=== PATIENT | male | born 1980 | race Caucasian/White ===

== ENCOUNTER 2017-09-19 18:16 | Inpatient (IN) | payer OTHER ==
[~2017-09-19] VITALS: Ht 172.7 cm; Wt 85.3 kg
[2017-09-19] MEDS ORDERED: SODIUM CHLORIDE 0.9% 1,000 ML IV ONE (18:41)
[2017-09-19] MEDS ORDERED: NITROGLYCERIN 0.4MG TABLET SL SL PRN (18:45)
[2017-09-19 19:02] LABS: BASOPHILS % 0.6 % (0.0-2.0); HEMATOCRIT. 42.6 % (42.0-52.0); HEMOGLOBIN. 14.8 g/dL (14.0-18.0); LYMPHOCYTES % 37.4 % (20.0-50.0); MEAN CORPUSCULAR HEMOGLOBIN 29.6 pg (28.0-32.0); MEAN CORPUSCULAR VOLUME 85.1 fL (80.0-94.0); MEAN PLATELET VOLUME 7.8 fl (7.4-10.4); MONOCYTES % 8.1 % (2.0-8.0); NEUTROPHILS % 53.9 % (40.0-76.0); PLATELET 177 x1000/uL (130-400); RED CELL DISTRIBUTION WIDTH 14.1 % (11.6-14.6)
[2017-09-19 19:05] LABS: CHLORIDE 99 mEq/L (98-107)
[2017-09-19 19:09] LABS: D-DIMER 0.35 mg/L FEU (<0.50); PARTIAL THROMBOPLASTIN TIME 24.2 sec (23.4-31.0); PROTHROMBIN TIME 10.8 sec (9.4-11.6)
[2017-09-19 19:15] LABS: ETHANOL BLOOD 296 mg/dL
[2017-09-19] MEDS ORDERED: POTASSIUM CHLORIDE 20MEQ TABLET SR PO ONE (22:15)
[2017-09-19] MEDS ORDERED: ASPIRIN 325MG EC TABLET PO ONE (22:15)
[2017-09-20] MEDS ORDERED: LORAZEPAM 2MG/ML CPJ IV NR (07:25)
[2017-09-20] MEDS ORDERED: MAGNESIUM/ALUMINUM HYDROXIDE/SIMETHICONE 30ML UDC PO PRN (08:30)
[2017-09-20] MEDS ORDERED: IPRATROPIUM/ALBUTEROL 0.5-3(2.5)MG/3ML NEB INH PRN (08:30)
[2017-09-20] MEDS ORDERED: DOCUSATE SODIUM 100MG CAPSULE PO PRN (08:30)
[2017-09-20] MEDS ORDERED: DIPHENHYDRAMINE 50MG/ML VIAL IV PRN (08:30)
[2017-09-20] MEDS ORDERED: ONDANSETRON HCL 4MG/2ML VIAL IV PRN (08:30)
[2017-09-20] MEDS ORDERED: ACETAMINOPHEN 325MG TABLET PO PRN (08:30)
[2017-09-20] MEDS ORDERED: NA PHOS,M-B/NA PHOS,DI-BA ENEMA 118ML PR PRN (08:30)
[2017-09-20] MEDS ORDERED: ACETAMINOPHEN 650MG/20.3ML UDC GT PRN (08:30)
[2017-09-20] MEDS ORDERED: GUAIFENESIN 200MG/10ML SUGAR FREE UDC PO PRN (08:30)
[2017-09-20] MEDS ORDERED: ACETAMINOPHEN 650MG SUPP PR PRN (08:30)
[2017-09-20] MEDS ORDERED: HYDROCODONE/ACETAMINOPHEN 5/325MG TABLET PO PRN (08:30)
[2017-09-20 09:11] LABS: BASOPHILS % 0.8 % (0.0-2.0); HEMATOCRIT. 40.2 % (42.0-52.0); HEMOGLOBIN. 14.2 g/dL (14.0-18.0); MEAN CORPUSCULAR HEMOGLOBIN 30.2 pg (28.0-32.0); MEAN CORPUSCULAR VOLUME 85.3 fL (80.0-94.0); MEAN PLATELET VOLUME 8.3 fl (7.4-10.4); MONOCYTES % 7.9 % (2.0-8.0); NEUTROPHILS % 64.3 % (40.0-76.0); PLATELET 157 x1000/uL (130-400); RED BLOOD CELL COUNT 4.72 mill/uL (4.7-6.1); RED CELL DISTRIBUTION WIDTH 13.6 % (11.6-14.6)
[2017-09-20] MEDS: THIAMINE HCL 100MG TABLET PO SCH (09:12)
[2017-09-20] MEDS: FOLIC ACID 1MG TABLET PO SCH (09:12)
[2017-09-20 09:15] VITALS: BP 125/87
[2017-09-20 09:25] LABS: CHLORIDE 99 mEq/L (98-107)
[2017-09-20 09:30] LABS: CHLORIDE 100 mEq/L (98-107)
[2017-09-20] MEDS: LORAZEPAM 2MG/ML CPJ IV PRN ×3 (11:07→22:23)
[2017-09-20] MEDS: SODIUM CHLORIDE 0.9% 1,000 ML IV SCH (11:17)
[2017-09-20 12:00] VITALS: BP 145/86
[2017-09-20] MEDS: SODIUM CHLORIDE 0.9% INJ 3ML FLUSH IVF SCH ×2 (14:53→22:22)
[2017-09-20 15:10] LABS: CREATINE KINASE 380 IU/L (39-308)
[2017-09-20 15:11] LABS: CREATINE KINASE MB FRACTION 1.5 ng/mL (0.5-3.6)
[2017-09-20 16:00] VITALS: BP 151/101
[2017-09-20 20:00] VITALS: BP 167/89
[2017-09-20 23:23] LABS: CREATINE KINASE 284 IU/L (39-308)
[2017-09-20 23:24] LABS: CREATINE KINASE MB FRACTION 1.4 ng/mL (0.5-3.6)
[2017-09-21] VITALS: BP 142/83
[2017-09-21 04:00] VITALS: BP 149/94
[2017-09-21] MEDS: LORAZEPAM 2MG/ML CPJ IV PRN ×5 (04:09→22:05)
[2017-09-21] MEDS: SODIUM CHLORIDE 0.9% 1,000 ML IV SCH ×2 (04:10→23:37)
[2017-09-21] MEDS: SODIUM CHLORIDE 0.9% INJ 3ML FLUSH IVF SCH ×3 (04:10→21:03)
[2017-09-21 06:31] LABS: BASOPHILS % 0.5 % (0.0-2.0); EOSINOPHILS % 0.4 % (0.0-5.0); HEMATOCRIT. 42.1 % (42.0-52.0); HEMOGLOBIN. 14.7 g/dL (14.0-18.0); MEAN CORPUSCULAR VOLUME 85.9 fL (80.0-94.0); MEAN PLATELET VOLUME 9.1 fl (7.4-10.4); MONOCYTES % 7.1 % (2.0-8.0); PLATELET 150 x1000/uL (130-400); RED CELL DISTRIBUTION WIDTH 13.5 % (11.6-14.6)
[2017-09-21 07:12] LABS: CHLORIDE 100 mEq/L (98-107)
[2017-09-21 07:32] LABS: LDL CHOLESTEROL 87 mg/dL (5-100)
[2017-09-21 07:34] LABS: HDL CHOLESTEROL 50 mg/dL (40-59)
[2017-09-21 08:00] VITALS: BP 162/103
[2017-09-21] MEDS: THIAMINE HCL 100MG TABLET PO SCH (08:26)
[2017-09-21] MEDS: FOLIC ACID 1MG TABLET PO SCH (08:26)
[2017-09-21] MEDS: CLONIDINE 0.1MG TABLET PO PRN (09:02)
[2017-09-21 12:00] VITALS: BP 141/92
[2017-09-21 16:00] VITALS: BP 131/86
[2017-09-21 20:00] VITALS: BP 133/83
[2017-09-22] VITALS: BP 119/89
[2017-09-22] MEDS: SODIUM CHLORIDE 0.9% INJ 3ML FLUSH IVF SCH (01:10)
[2017-09-22 04:00] VITALS: BP 147/87
[2017-09-22] MEDS: LORAZEPAM 2MG/ML CPJ IV PRN ×2 (04:02→08:31)
[2017-09-22 08:00] VITALS: BP 136/85
[2017-09-22] MEDS: THIAMINE HCL 100MG TABLET PO SCH (08:15)
[2017-09-22] MEDS: FOLIC ACID 1MG TABLET PO SCH (08:15)
[2017-09-22 10:50] VITALS: BP 136/85
[2017-09-22] MEDS: CLONIDINE 0.1MG TABLET PO PRN (11:58)
[2017-09-22] MEDS ORDERED: HYDRALAZINE 20MG/ML VIAL IV NR (12:30)
== END 2017-09-22 13:06 | disposition home or self-care (01) | DRG 641 ==
LOC: ER 19:04 → 8WST 09-20 02:05 → ENRESERV 09-20 02:32 → CANRESERV 09-20 02:32 → ENRESERV 09-20 07:43
PROVIDERS: ADMIT Family Medicine; ATTEND Family Medicine
DX: E87.6 Hypokalemia (principal); E86.0 Dehydration; E83.51 Hypocalcemia; F17.200 Nicotine dependence, unspecified, uncomplicated; F43.10 Post-traumatic stress disorder, unspecified; G40.909 Epilepsy, unspecified, not intractable, without status epilepticus; I10 Essential (primary) hypertension; F10.10 Alcohol abuse, uncomplicated
CPT/HCPCS: 36415; 70450; 71045; 73140; 80053; 80061; 82550; 82553; 83690; 83735; 83880; 84484; 85025; 85379; 85610; 85730; 93005; 96360; 96361; 96375; 99285; G0482; J0360; J2060; J7030